=== PATIENT | female | born 1965 | race Hispanic/Latino ===

== ENCOUNTER 2017-07-22 09:59 | Emergency (ER) | payer OTHER, BC ==
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
[2017-07-22 12:43] VITALS: BP 146/62; PULSE 61; RESP 18; TEMP 97; O2SAT 98
== END 2017-07-22 11:35 | disposition home or self-care (01) ==
LOC: H.ER 09:59
DX: S70.02XA Contusion of left hip, initial encounter (principal); V03.10XA Pedestrian on foot injured in collision with car, pick-up truck or van in traffic accident, initial encounter; Y92.410 Unspecified street and highway as the place of occurrence of the external cause